=== PATIENT | male | born 1995 | race African-American/Black ===

== ENCOUNTER 2020-04-28 21:04 | Emergency (ER) | payer OTHER ==
[2020-04-28 21:12] VITALS: BP 123/68; PULSE 70; TEMP 99.5; BMI 23.7
[2020-04-28] MEDS ORDERED: CEPHALEXIN MONOHYDRATE 500 MG CAPSULE (UD) PO ONE (21:17)
[2020-04-28] MEDS ORDERED: DIPHTH,PERTUSS(ACELL),TET 0.5 ML DISP.SYRIN IM ONE ×2 (21:18→21:23)
[2020-04-28] MEDS ORDERED: CEPHALEXIN MONOHYDRATE 500 MG CAPSULE (UD) ONE (21:22)
== END 2020-04-28 21:45 | disposition home or self-care (01) ==
LOC: FER 21:04
PROC: 0XQ Anatomical Regions, Upper Extremities, Repair (ICD-10-PCS; principal; 2020-04-28)
PROC: 3E0234Z Introduction of Serum, Toxoid and Vaccine into Muscle, Percutaneous Approach (ICD-10-PCS; 2020-04-28)
DX: S61.411A Laceration without foreign body of right hand, initial encounter (principal)
CPT/HCPCS: 90715; 99284-25

== ENCOUNTER 2020-05-09 15:50 | Emergency (ER) | payer OTHER ==
[2020-05-09 16:07] VITALS: BP 114/57; PULSE 62; TEMP 99.7; BMI 23.7
== END 2020-05-09 16:19 | disposition home or self-care (01) ==
LOC: FER 15:50
DX: Z48.02 Encounter for removal of sutures (principal)
CPT/HCPCS: 99281-25

== ENCOUNTER 2023-10-11 08:52 | Emergency (ER) | payer OTHER ==
[2023-10-11 09:07] VITALS: BP 120/63; PULSE 80; RESP 18; TEMP 99.4; BMI 22.4
[2023-10-11] MEDS ORDERED: ONDANSETRON 4 MG/2 ML VIAL ONE (09:28)
[2023-10-11] MEDS ORDERED: FAMOTIDINE 20 MG/50 ML IVPB 20 MG/50 ML MG IVPB ONE (09:28)
[2023-10-11] MEDS ORDERED: ACETAMINOPHEN INJECTION 100 ML IVPB ONE (09:29)
[2023-10-11] MEDS: SODIUM CHLORIDE 0.9% 500 ML INFUS.BAG IV ONE (09:30)
[2023-10-11] MEDS: ONDANSETRON 4 MG/2 ML VIAL IVPUSH ONE (09:35)
[2023-10-11] MEDS: FAMOTIDINE 20 MG/50 ML IVPB 20 MG/50 ML MG IVPB ONE (09:40)
[2023-10-11 09:55] LABS: HEMATOCRIT 52.4 % (35.4-49); HEMOGLOBIN 17.4 G/dL (11.7-16.9); MCH 29.8 pg (25.7-33.7); MCHC 33.1 g/dl (32.0-35.9); MEAN CELL VOLUME 89.8 fl (80-96); MEAN PLT VOLUME 8.6 fl (7.5-11.1); PLATELET COUNT 209.7 10^3/uL (134-434); RBC 5.83 10^6/uL (4.00-5.60); RDW 13.8 % (11.9-15.9); WHITE BLOOD COUNT 12.7 10^3/uL (4.0-10.8)
[2023-10-11] MEDS: ACETAMINOPHEN 1000 MG/100 ML BAG IVPB ONE (10:04)
[2023-10-11 10:06] LABS: PLATELET ESTIMATE ADEQUATE
[2023-10-11 10:11] LABS: ALBUMIN 4.9 g/dl (3.4-5.0); BILIRUBIN,TOTAL 1.4 mg/dl (0.2-1); CALCIUM 10.1 mg/dl (8.5-10.1); CREATININE 1.2 mg/dl (0.6-1.3); POTASSIUM 3.9 mmol/L (3.5-5.1); TOT PROT 7.6 g/dl (6.4-8.2)
[2023-10-11 10:45] LABS: THROAT:GRP A STREP NOT DETECTED (NOTDETECTED)
== END 2023-10-11 11:53 | disposition home or self-care (01) ==
LOC: FER 08:52
PROC: 3E033GC Introduction of Other Therapeutic Substance into Peripheral Vein, Percutaneous Approach (ICD-10-PCS; principal; 2023-10-11)
PROC: 3E030NZ Introduction of Analgesics, Hypnotics, Sedatives into Peripheral Vein, Open Approach (ICD-10-PCS; 2023-10-11)
PROC: 3E030GC Introduction of Other Therapeutic Substance into Peripheral Vein, Open Approach (ICD-10-PCS; 2023-10-11)
DX: K52.9 Noninfective gastroenteritis and colitis, unspecified (principal); R11.2 Nausea with vomiting, unspecified; M79.10 Myalgia, unspecified site; R10.13 Epigastric pain; R53.81 Other malaise; R68.83 Chills (without fever); Z20.822 Contact with and (suspected) exposure to COVID-19
CPT/HCPCS: 0241U-QW; 36415; 80053; 85025; 87651; 99284-25; J0131